=== PATIENT | male | born 2000 | race Caucasian/White ===

== ENCOUNTER → 2024-11-18 15:32 | Outpatient (BNVA) | payer OTHER, SELFPAY | PROVIDERS: PCP Family Medicine; Visit Provider Family Medicine | DX: Z00.00 Encounter for general adult medical examination without abnormal findings (principal) | CPT/HCPCS: 80053; 80061; 85025 ==

== ENCOUNTER 2025-01-12 13:56 | Outpatient (CLI) | payer OTHER, SELFPAY | END 2025-01-12 13:57 | disposition home or self-care (01) | LOC: SLEEP 13:57 | PROVIDERS: PCP Family Medicine; Referring Provider Family Medicine; Visit Provider Internal Medicine Pulmonary Disease | DX: G47.33 Obstructive sleep apnea (adult) (pediatric) (principal) | CPT/HCPCS: G0399 ==